=== PATIENT | male | born 1940 | race Caucasian/White ===

== ENCOUNTER 2020-02-21 07:54 | Day surgery (SDC) | payer MEDICARE, BC ==
[~2020-02-21] VITALS: Ht 175.3 cm; Wt 88.6 kg
[~2020-02-21 07:54] MED LIST: ASPI81TA52 PO; FELO5TAB46 PO; MV-M1TAB38 PO; OMEP40CA13 PO; SIMV10TA2 PO; TERA5CAP4 PO; UBID1CAP54 PO
[2020-02-21] MEDS ORDERED: LIDOcaine Viscous 15ml cup ONE (08:01)
[2020-02-21] MEDS ORDERED: fentaNYL/PF 50MCG/1 ML 2ML syringe ONE (08:01)
[2020-02-21] MEDS ORDERED: MIDAZolam 5mg/5ml vial ONE (08:01)
[2020-02-21 08:07] VITALS: BP 185/92
[2020-02-21] MEDS ORDERED: simethicone 40mg/0.6ml oral drops 30ml PO ONE (08:25)
[2020-02-21] MEDS ORDERED: LIDOcaine Viscous 15ml cup MM ONE (08:25)
[2020-02-21] MEDS ORDERED: normal saline 500ml IV soln 500 ML IV ONE (08:30)
[2020-02-21 10:06] VITALS: BP 129/73
[2020-02-21 10:15] VITALS: BP 129/79
[2020-02-21 10:25] VITALS: BP 135/74
[2020-02-21 10:35] VITALS: BP 125/68
== END 2020-02-21 10:35 | disposition home or self-care (01) ==
LOC: GI LAB 07:54
PROVIDERS: ATTEND Internal Medicine Gastroenterology
DX: R13.19 Other dysphagia (principal); K22.8 Other specified diseases of esophagus
CPT/HCPCS: 43236; 43248; G0500; J0585; J2250; J3010; J7040; 43450; 99152; A4620